=== PATIENT | female | born 1965 | race Caucasian/White ===

== ENCOUNTER → 2016-07-12 | Outpatient (CLI) | payer BC ==
[2016-07-12 16:44] LABS: Basophils % (A) 1 %; CH 29.7; Eosinophils % (A) 1 %; HCT 42.5 % (34.0-46.0); HDW 2.52; HGB 13.7 gm/dL (11.4-16.0); Luc % (Auto) 2; Lymphocytes # (A) 1.6 k/uL (1.0-4.8); Lymphocytes % (A) 37 %; MCH 29.2 pg (25.0-35.0); MCHC 32.2 g/dL (31.0-37.0); MCV 90.6 fL (80.0-100.0); Mean Platelet Volume 6.6; Monocytes # (A) 0.2 k/uL (0-1.0); Monocytes % (A) 5 %; Neutrophils # (A) 2.4 k/uL (1.3-7.7); Neutrophils % (A) 56 %; RBC 4.69 m/uL (3.80-5.40); RDW 12.1 % (11.5-15.5); WBC 4.3 k/uL (3.8-10.6)
[2016-07-12 16:53] LABS: ALT 30 U/L (9-52); AST 16 U/L (14-36); Anion Gap 11 mmol/L; Blood Urea Nitrogen 10 mg/dL (7-17); Calcium 9.3 mg/dL (8.4-10.2); Carbon Dioxide 23 mmol/L (22-30); Chloride 110 mmol/L (98-107); Glucose 92 mg/dL (74-99); Non-African American GFR(MDRD) >60 (>60 ml/min/1.73 sqM); Potassium 4.1 mmol/L (3.5-5.1); Sodium 144 mmol/L (137-145)
== END | disposition home or self-care (01) ==
LOC: LABWHC1 16:10
PROVIDERS: ATTEND Psychiatry & Neurology Neurology
DX: Z51.81 Encounter for therapeutic drug level monitoring (principal); Z79.899 Other long term (current) drug therapy
CPT/HCPCS: 36415; 80048; 84450; 84460; 85025

== ENCOUNTER 2016-11-12 23:21 | Emergency (ER) | payer BC ==
--- NOTE | 2016-11-12 23:50 | ED ---
General Adult HPI - General Chief complaint: Fall Stated complaint: syncope Time Seen by Provider: 11/12/16 23:25 Source: patient, RN notes reviewed Mode of arrival: ambulatory Limitations: no limitations - History of Present Illness Initial comments: This is a 51-year-old female who states she had worked a 16-18 hour day and she was extremely tired. Patient states she went to the bathroom and felt the toilet and then fell off the toilet and hit her head on the left side of her head. Patient states he was some bleeding at that time but she never found the site of bleeding. Patient states she did not lose consciousness she had no neck pain. Patient denies any current headache. Patient states her scalp is very tender. This occurred 2 days ago. Patient denies any chest pain palpitations difficulty breathing or shortness of breath. Patient denies any back pain. Patient does have a little lateral left shoulder pain. Patient states she does have full range of motion of her shoulder. Patient also complains of some left lateral hip pain again full range of motion of the left hip is intact. Patient denies any other symptoms or injuries. - Related Data Home Medications Medication Instructions Recorded Confirmed Ascorbic Acid [Vitamin C] 1,000 mg PO DAILY 11/12/16 11/12/16 Aspirin 81 mg PO DAILY 11/12/16 11/12/16 Ergocalciferol [Vitamin D2] 50,000 unit PO QMONTH 11/12/16 11/12/16 HYDROcodone/APAP 10-325MG [Success 1 tab PO QID PRN 11/12/16 11/12/16 10-325] Multivit-Min/FA/Lycopen/Lutein 1 tab PO DAILY 11/12/16 11/12/16 [Centrum Silver Tablet] Nitroglycerin Sl Tabs [Nitrostat] 0.4 mg SUBLINGUAL Q5M PRN 11/12/16 11/12/16 Pravastatin Sodium [Pravachol] 40 mg PO HS 11/12/16 11/12/16 Topiramate [Topamax] 50 mg PO DAILY@1400 11/12/16 11/12/16 Topiramate [Topamax] 100 mg PO BID@0800,2000 11/12/16 11/12/16 Unknown Inhaler 1 dose INHALATION DIRECTED 11/12/16 11/12/16 Allergies Allergy/AdvReac Type Severity Reaction Status Date / Time latex Allergy Unknown Verified 11/12/16 23:40 Penicillins Allergy Unknown Verified 11/12/16 23:40 Review of Systems ROS Statement: Those systems with pertinent positive or pertinent negative responses have been documented in the HPI. ROS Other: All systems not noted in ROS Statement are negative. Past Medical History Past Medical History: Seizure Disorder History of Any Multi-Drug Resistant Organisms: None Reported Past Surgical History: Appendectomy, Heart Catheterization With Stent Past Psychological History: No Psychological Hx Reported Smoking Status: Current every day smoker Past Alcohol Use History: Occasional General Exam - General Exam Comments Initial Comments: GENERAL: Patient is well-developed and well-nourished. Patient is nontoxic and well- hydrated and is in mild distress. Patient's scalp is tender in the left temporal region. No abrasion or laceration could be found on the patient's scalp. ENT: Neck is soft and supple. No significant lymphadenopathy is noted. Oropharynx is clear. Moist mucous membranes. Neck has full range of motion without eliciting any pain. EYES: The sclera were anicteric and conjunctiva were pink and moist. Extraocular movements were intact and pupils were equal round and reactive to light. Eyelids were unremarkable. PULMONARY: Unlabored respirations. Good breath sounds bilaterally. No audible rales rhonchi or wheezing was noted. CARDIOVASCULAR: There is a regular rate and rhythm without any murmurs gallops or rubs. ABDOMEN: Soft and nontender with normal bowel sounds. No palpable organomegaly was noted. There is no palpable pulsatile mass. SKIN: Skin is clear with no lesions or rashes and otherwise unremarkable. NEUROLOGIC: Patient is alert and oriented x3. Cranial nerves II through XII are grossly intact. Motor and sensory are also intact. Normal speech, volume and content. Symmetrical smile. MUSCULOSKELETAL: Normal extremities with adequate strength and full range of motion. Patient has some tenderness to the lateral left hip as well as lateral shoulder. She has full range of motion of both her hip and shoulder. LYMPHATICS: No significant lymphadenopathy is noted PSYCHIATRIC: Normal psychiatric evaluation. Normal interpersonal interactions appears functionally intact in deals appropriately with others. No signs of depression. Limitations: no limitations Course Vital Signs 11/12/16 11/13/16 23:25 01:04 Temperature 98.2 F Pulse Rate 84 66 Respiratory 16 18 Rate Blood Pressure 137/77 122/68 O2 Sat by Pulse 100 97 Oximetry Medical Decision Making - Medical Decision Making Pelvis x-ray shows no acute abnormalities. Shoulder x-ray shows no acute abnormalities. CT of the head shows no acute abnormalities. Disposition Clinical Impression: Multiple contusions, Head injury Disposition: HOME SELF-CARE Condition: Good Instructions: Head Injury (ED) Referrals: Igor Contreras DO [Primary Care Provider] - 1-2 days Time of Disposition: 01:14
--- NOTE | 2016-11-13 00:33 | CT ---
EXAM: CT Head Without Intravenous Contrast CLINICAL HISTORY: Reason: syncope with fall, left sided head pain TECHNIQUE: Axial computed tomography images of the head/brain without intravenous contrast. CTDI is 57.40 mGy and DLP is 978.20 mGy-cm. This CT exam was performed using one or more of the following dose reduction techniques: automated exposure control, adjustment of the mA and/or kV according to patient size, and/or use of iterative reconstruction technique. COMPARISON: CT head on 01/29/2016 FINDINGS: Brain: No acute infarct or hemorrhage. No extra-axial fluid collection. No mass effect or midline shift. Ventricles and sulci: Normal. No ventriculomegaly or intraventricular hemorrhage. Skull: Normal. No bony lesion or fracture. Subcutaneous tissues: Normal. Sinuses: Normal. No air-fluid levels or mucosal thickening. Mastoid air cells: Normal. Orbits: Grossly unremarkable. IMPRESSION: No acute intracranial abnormality.
[2016-11-13 01:04] VITALS: BP 122/68; PULSE 66; RESP 18
--- NOTE | 2016-11-13 01:05 | XR ---
EXAM: XR Left Shoulder Complete, 2 or More Views CLINICAL HISTORY: Reason: left shoulder pain from fall from toilet TECHNIQUE: Two or more views of the left shoulder. COMPARISON: None FINDINGS: Bones/joints: No acute fracture or dislocation identified. Degenerative changes of the left acromioclavicular joint. Soft tissues: Normal. IMPRESSION: No acute abnormality identified.
--- NOTE | 2016-11-13 01:08 | XR ---
EXAM: XR Pelvis, 1 or 2 Views CLINICAL HISTORY: Reason: left hip pain from fall from toilet TECHNIQUE: Frontal view of the pelvis. COMPARISON: Pelvis radiograph on 01/29/2016 FINDINGS: Bones/joints: No acute fracture or dislocation identified. Stable mild degenerative changes of the hips. Soft tissues: Surgical clips again noted projecting over the superior right pelvis. IMPRESSION: No acute abnormality identified.
[2016-11-13] MEDS ORDERED: DOXYCYCLINE 50 MG CAP PO STA (01:19)
[2016-11-13 02:06] VITALS: TEMP 98.6
== END 2016-11-13 01:45 | disposition home or self-care (01) ==
LOC: EC 23:21
DX: S70.02XA Contusion of left hip, initial encounter (principal); S40.012A Contusion of left shoulder, initial encounter; S09.90XA Unspecified injury of head, initial encounter; G40.909 Epilepsy, unspecified, not intractable, without status epilepticus; F17.200 Nicotine dependence, unspecified, uncomplicated; Z79.82 Long term (current) use of aspirin; Z79.899 Other long term (current) drug therapy; Z91.040 Latex allergy status; Z88.0 Allergy status to penicillin; W18.11XA Fall from or off toilet without subsequent striking against object, initial encounter; Y92.89 Other specified places as the place of occurrence of the external cause
CPT/HCPCS: 70450; 72170; 99284

== ENCOUNTER → 2018-01-14 | Outpatient (CLI) | payer BC ==
--- NOTE | 2018-01-16 10:24 | MM ---
Reason for exam: screening (asymptomatic). Last mammogram was performed 1 year and 8 months ago. History: Benign excisional biopsy of the left breast, 2002. Physical Findings: A clinical breast exam by your physician is recommended on an annual basis and results should be correlated with mammographic findings. MG 3D Screening Mammo W/Cad Bilateral CC and MLO view(s) were taken. Prior study comparison: May 21, 2016, bilateral MG 3d screening mammo w/cad. November 25, 2012, CAD bilateral diagnostic mammogram. The breast tissue is heterogeneously dense. This may lower the sensitivity of mammography. There is chronic nodularity in the left breast. Interval weight loss. No significant changes when compared with prior studies. ASSESSMENT: Negative, BI-RAD 1 RECOMMENDATION: Routine screening mammogram of both breasts in 1 year.
== END | disposition home or self-care (01) ==
LOC: RADMAMWWP 16:40
PROVIDERS: ATTEND Internal Medicine
DX: Z12.31 Encounter for screening mammogram for malignant neoplasm of breast (principal)
CPT/HCPCS: 77063; 77067

== ENCOUNTER → 2019-02-02 | Outpatient (CLI) | payer BC ==
--- NOTE | 2019-02-03 13:49 | MM ---
Reason for exam: screening (asymptomatic). Last mammogram was performed 1 year and 1 month ago. History: Benign excisional biopsy of the left breast, 2002. Physical Findings: A clinical breast exam by your physician is recommended on an annual basis and results should be correlated with mammographic findings. MG 3D Screening Mammo W/Cad Bilateral CC and MLO view(s) were taken. Prior study comparison: January 14, 2018, bilateral MG 3d screening mammo w/cad. May 21, 2016, bilateral MG 3d screening mammo w/cad. The breast tissue is heterogeneously dense. This may lower the sensitivity of mammography. No suspicious abnormality. Post surgical change on the left. No significant changes when compared with prior studies. ASSESSMENT: Benign, BI-RAD 2 RECOMMENDATION: Routine screening mammogram of both breasts in 1 year.
== END | disposition home or self-care (01) ==
LOC: RADMAMWWP 09:11
PROVIDERS: ATTEND Internal Medicine
DX: Z12.31 Encounter for screening mammogram for malignant neoplasm of breast (principal); Z80.3 Family history of malignant neoplasm of breast; Z90.12 Acquired absence of left breast and nipple
CPT/HCPCS: 77063; 77067

== ENCOUNTER → 2019-04-29 | Outpatient (CLI) | payer BC ==
[2019-04-29 17:40] LABS: Chol/HDL Ratio 2.01
== END | disposition home or self-care (01) ==
LOC: LABWHC1 08:08
PROVIDERS: ATTEND Internal Medicine Interventional Cardiology
DX: E78.5 Hyperlipidemia, unspecified (principal)
CPT/HCPCS: 36415; 80061

== ENCOUNTER → 2020-06-28 | Outpatient (CLI) | payer BC ==
--- NOTE | 2020-06-30 10:05 | MM ---
Reason for exam: screening (asymptomatic). Last mammogram was performed 1 year and 5 months ago. History: Benign excisional biopsy of the left breast, 2002. Physical Findings: A clinical breast exam by your physician is recommended on an annual basis and results should be correlated with mammographic findings. MG 3D Screening Mammo W/Cad Bilateral CC and MLO view(s) were taken. Prior study comparison: February 02, 2019, bilateral MG 3d screening mammo w/cad. January 14, 2018, bilateral MG 3d screening mammo w/cad. The breast tissue is heterogeneously dense. This may lower the sensitivity of mammography. No significant changes when compared with prior studies. ASSESSMENT: Benign, BI-RAD 2 RECOMMENDATION: Routine screening mammogram of both breasts in 1 year.
== END | disposition home or self-care (01) ==
LOC: RADMAMWWP 09:14
PROVIDERS: ATTEND Internal Medicine
DX: Z12.31 Encounter for screening mammogram for malignant neoplasm of breast (principal)
CPT/HCPCS: 77063; 77067

== ENCOUNTER → 2020-10-28 | Outpatient (CLI) | payer BC ==
--- NOTE | 2020-10-28 10:01 | XR ---
EXAMINATION TYPE: XR chest 2V DATE OF EXAM: 10/28/2020 COMPARISON: Chest x-ray January 29, 2016 HISTORY: Generalized weakness and shortness of breath TECHNIQUE: Frontal and lateral views of the chest are obtained. FINDINGS: There is no focal air space opacity, pleural effusion, or pneumothorax seen. The cardiac silhouette size remains stable and within normal limits. Underlying scoliotic curvature near the leve l of the thoracolumbar junction. IMPRESSION: No acute cardiopulmonary process. No significant change from prior.
--- NOTE | 2020-10-28 10:55 | XR ---
EXAMINATION TYPE: XR hand complete LT DATE OF EXAM: 10/28/2020 COMPARISON: NONE HISTORY: Left first digit pain with decreased range of motion. No injury.. TENDERNESS ON LT THUMB ME TACARPAL BONE. TECHNIQUE: AP, oblique, and lateral views of the left hand were obtained. FINDINGS: No acute fracture. No dislocation. There is moderate degenerative spurring of the first dig it interphalangeal joint. There are also mild to moderate degenerative changes at the proximal interp halangeal joints, and mildly at the second and third digits distal interphalangeal joints. The metaca rpophalangeal joints of the second through fifth digits are normal in space seen and without osteophy tosis, however there is periarticular osteopenia at the metacarpophalangeal joints. There is also mil d periarticular osteopenia at the fourth and fifth digits at the PIP joints. There is very minimal de generative change at the first carpometacarpal joint. There is periarticular osteopenia noted primari ly at the second through fifth digit There is no no evidence of osseous erosion or periosteal reactio n. There is no significant cystic changes. No significant soft tissue swelling. IMPRESSION: 1. No acute fracture or dislocation. 2. There is moderate degenerative spurring at the first digit interphalangeal joint, likely the sour ce of patient's pain. 3. 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 Recommend clinical correlation.
[2020-10-28 16:49] LABS: INR 0.87 (0.90-1.11); Prothrombin Time 9.6 sec (9.9-11.9)
[2020-10-28 17:04] LABS: Basophils # (A) 0.05 X 10*3/uL (0.00-0.10); Eosinophils # (A) 0.35 X 10*3/uL (0.04-0.35); Eosinophils % (A) 7.1 %; HGB 13.6 g/dL (12.0-15.0); Lymphocytes # (A) 1.36 X 10*3/uL (0.90-5.00); Lymphocytes % (A) 27.5 %; MCH 29.1 pg (27.0-32.0); MCHC 31.6 g/dL (32.0-37.0); MCV 92.1 fL (80.0-97.0); Mean Platelet Volume 10.1 fL (9.5-12.2); Monocytes # (A) 0.51 X 10*3/uL (0.20-1.00); Monocytes % (A) 10.3 %; Neutrophils # (A) 2.66 X 10*3/uL (1.80-7.70); Neutrophils % (A) 53.9 %; Platelet Count 226 X 10*3/uL (140-440); RBC 4.67 X 10*6/uL (4.10-5.20); RDW 12.3 % (11.5-14.5); WBC 4.94 X 10*3/uL (4.50-10.00)
[2020-10-28 17:46] LABS: Erythrocyte Sedimentation Rate 6 mm/Hr (0-30)
[2020-10-28 22:11] LABS: ALT 22 U/L (8-44); AST 22 U/L (13-35); African American GFR (CKD) 111.5 (60.0-200.0); Alkaline Phosphatase 117 U/L (41-126); BUN/Creat Ratio 18.57 Ratio (12.00-20.00); C Reactive Protein <0.4 mg/dL (0.0-0.8); Calcium 8.8 mg/dL (8.7-10.3); Carbon Dioxide 22.1 mmol/L (21.6-31.8); Chloride 112 mmol/L (96-109); Globulin 1.8 g/dL (1.6-3.3); Glucose 160 mg/dL (70-110); Non-African American GFR(CKD) 96.2 (60.0-200.0); Phosphorus 3.7 mg/dL (2.4-5.1); Potassium 4.1 mmol/L (3.5-5.5); Sodium 145 mmol/L (135-145); Total Bilirubin 0.3 mg/dL (0.3-1.2); Total Protein 6.3 g/dL (6.2-8.2); Uric Acid 2.9 mg/dL (2.9-7.7)
== END | disposition home or self-care (01) ==
LOC: LABWHC1 08:59
PROVIDERS: ATTEND Internal Medicine
DX: M19.042 Primary osteoarthritis, left hand (principal); M06.9 Rheumatoid arthritis, unspecified; R53.1 Weakness; R06.02 Shortness of breath; R53.83 Other fatigue
CPT/HCPCS: 36415; 71046; 80053; 82533; 83735; 84100; 84550; 85025; 85610; 85652; 86140; 86618

== ENCOUNTER → 2021-07-13 | Outpatient (CLI) | payer BC ==
--- NOTE | 2021-07-14 11:57 | MM ---
Reason for exam: screening (asymptomatic). Last mammogram was performed 1 year ago. History: Patient is postmenopausal. Family history of breast cancer in maternal grandmother. Benign excisional biopsy of the left breast, 2002. Physical Findings: A clinical breast exam by your physician is recommended on an annual basis and results should be correlated with mammographic findings. MG 3D Screening Mammo W/Cad Bilateral CC and MLO view(s) were taken. Prior study comparison: June 28, 2020, bilateral MG 3d screening mammo w/cad. February 02, 2019, bilateral MG 3d screening mammo w/cad. The breast tissue is heterogeneously dense. This may lower the sensitivity of mammography. There is no discrete abnormality. ASSESSMENT: Negative, BI-RAD 1 RECOMMENDATION: Routine screening mammogram of both breasts in 1 year.
== END | disposition home or self-care (01) ==
LOC: RADMAMWWP 13:16
PROVIDERS: ATTEND Internal Medicine
DX: Z12.31 Encounter for screening mammogram for malignant neoplasm of breast (principal); Z78.0 Asymptomatic menopausal state; Z80.3 Family history of malignant neoplasm of breast
CPT/HCPCS: 77063; 77067

== ENCOUNTER → 2022-06-13 | Outpatient (CLI) | payer BC ==
--- NOTE | 2022-06-13 11:13 | US ---
EXAMINATION TYPE: US thyroid st tissue head/neck DATE OF EXAM: 06/13/2022 COMPARISON: NONE CLINICAL HISTORY: M79.9 SOFT TISSUE DISORDER, UNSPECIFIED. Patient has a history of extreme head trau ma. Patient states both sides of her neck feel very hard and are painful. Bilateral lateral neck scanned at patient's area of concern. Upper midline neck was also scanned infe rior to the chin. No abnormalities seen within the right lateral neck or upper midline neck. Hypoechoic area with hyperechoic center seen within the left neck at the submandibular area: 1.9 x 1. 1 x 0.8 cm. IMPRESSION: 1. There may be a lymph node within the left neck submandibular region. Follow-up can be performed as clinically indicated.
== END | disposition home or self-care (01) ==
LOC: RADUSWWP 08:18
PROVIDERS: ATTEND Family Medicine
DX: M79.9 Soft tissue disorder, unspecified (principal)
CPT/HCPCS: 76536

== ENCOUNTER → 2022-07-13 | Outpatient (CLI) | payer BC ==
--- NOTE | 2022-07-13 15:17 | CT ---
EXAMINATION TYPE: CT soft tissue neck w con DATE OF EXAM: 07/13/2022 COMPARISON: None HISTORY: 56-year-old female M79.9, Unspecified soft tissue disorder of neck. Pt states she has bilate ral stiffness and pain, limited neck movement. TECHNIQUE: Contiguous axial scanning of the soft tissues of the neck performed with IV Contrast, deborah ent injected with 70 mL of Isovue 300. Coronal/sagittal reconstructions performed. CT DLP: 310 mGycm Automated exposure control for dose reduction was used. FINDINGS: Visualized intracranial structures, orbits and globes, paranasal sinuses, mastoid air cells appear cl ear. Leftward nasal septal deviation. Nasopharynx and oropharynx are clear. Mild bilateral palatine tonsillar hypertrophy. Epiglottis and prevertebral soft tissues are satisfactory. Glottic and subglottic structures as well as the tracheal column and visualized upper lungs appear cl ear. The thyroid and submandibular glands appear satisfactory. Atrophic bilateral parotid glands. Upper cervical lymph nodes measuring up to 6 mm short axis. No cervical lymphadenopathy by CT size cr iteria. Mild atherosclerotic calcifications at the left carotid bifurcation. Bones: There is [id number] degenerative disc disease C5-C7 levels with disc space narrowing and small disc osteophyte complex formation. This results in straightening and slight reversal cervical lordosis. Uncovertebral joint arthropathy lower cervical spine. Changes result in mild bilateral neur oforaminal narrowing at C5-C6 and C6/C7. IMPRESSION: 1. MILD TO MODERATE SPONDYLOTIC CHANGE C5-C7 LEVELS. MILD BILATERAL NEURAL FORAMINAL NARROWING AT BOT H OF THESE LEVELS. 2. MILD BILATERAL PALATINE TONSILLAR HYPERTROPHY. SLIGHTLY ATROPHIC BILATERAL PAROTID GLANDS. LEFTWAR D NASAL SEPTAL DEVIATION. 4. OTHERWISE, NO SPECIFIC ABNORMALITY SEEN.
== END | disposition home or self-care (01) ==
LOC: RADCTMAIN 10:05
PROVIDERS: ATTEND Family Medicine
DX: J35.1 Hypertrophy of tonsils (principal); J34.2 Deviated nasal septum; M79.9 Soft tissue disorder, unspecified; I65.23 Occlusion and stenosis of bilateral carotid arteries; K11.0 Atrophy of salivary gland; M47.812 Spondylosis without myelopathy or radiculopathy, cervical region; M99.71 Connective tissue and disc stenosis of intervertebral foramina of cervical region
CPT/HCPCS: 70491; Q9967

== ENCOUNTER → 2022-07-18 | Outpatient (CLI) | payer BC ==
--- NOTE | 2022-07-19 08:26 | MM ---
Reason for Exam: Screening (asymptomatic). Last screening mammogram was performed 12 month(s) ago. Patient History: Menarche at age 7. First Full-Term at age 16. Left ovary removed at age 36. Right ovary removed at age 36. Hysterectomy at age 36. Postmenopausal. 2002, Benign Excisional Biopsy on the left side. Maternal grandmother had breast cancer. Risk Values: Carleen 5 year model risk: 1.2%. NCI Lifetime model risk: 7.2%. Prior Study Comparison: 02/02/2019 Bilateral Screening Mammogram, [facility]. 06/28/2020 Bilateral Screening Mammogram, [facility]. 07/13/2021 Bilateral Screening Mammogram, [facility]. Tissue Density: The breast tissue is heterogeneously dense. This may lower the sensitivity of mammography. Findings: Analyzed By CAD. There is no suspicious group of microcalcifications or new suspicious mass in either breast. Overall Assessment: Benign, BI-RAD 2 Management: Screening Mammogram of both breasts in 1 year. A clinical breast exam by your physician is recommended on an annual basis and results should be correlated with mammographic findings. Electronically signed and approved by: Harlye Garcia M.D. Radiologis
== END | disposition home or self-care (01) ==
LOC: RADMAMWWP 11:40
PROVIDERS: ATTEND Family Medicine
DX: Z12.31 Encounter for screening mammogram for malignant neoplasm of breast (principal); Z78.0 Asymptomatic menopausal state; Z80.3 Family history of malignant neoplasm of breast
CPT/HCPCS: 77063; 77067

== ENCOUNTER → 2023-02-20 | Outpatient (CLI) | payer BC ==
[2023-02-20 13:39] LABS: ALT 15 U/L (8-44); AST 19 U/L (13-35); Albumin 4.5 d/dL (3.8-4.9); Albumin/Globulin Ratio 2.25 Ratio (1.60-3.17); Alkaline Phosphatase 81 U/L (41-126); BUN/Creat Ratio 13.11 Ratio (12.00-20.00); Blood Urea Nitrogen 11.8 mg/dL (9.0-27.0); Calcium 9.3 mg/dL (8.7-10.3); Carbon Dioxide 23.3 mmol/L (21.6-31.8); Chloride 109 mmol/L (96-109); Chol/HDL Ratio 3.04 Ratio; Glucose 106 mg/dL (70-110); LDL Cholesterol,Calculated 122.7 mg/dL (0.0-131.0); Potassium 4.4 mmol/L (3.5-5.5); Sodium 144 mmol/L (135-145); Total Bilirubin 0.3 mg/dL (0.3-1.2); Total Protein 6.5 d/dL (6.2-8.2); VLDL Calculation 11.48 mg/dL (5.00-40.00)
== END | disposition home or self-care (01) ==
LOC: LABWHC1 08:12
PROVIDERS: ATTEND Internal Medicine Cardiovascular Disease
DX: I25.10 Atherosclerotic heart disease of native coronary artery without angina pectoris (principal)
CPT/HCPCS: 36415; 80053; 80061

== ENCOUNTER → 2023-07-24 | Outpatient (CLI) | payer BC ==
--- NOTE | 2023-07-25 09:01 | MM ---
Reason for Exam: Screening (asymptomatic). Last screening mammogram was performed 12 month(s) ago. Patient History: Menarche at age 7. First Full-Term at age 16. Left ovary removed at age 36. Right ovary removed at age 36. Hysterectomy at age 36. Postmenopausal. 2002, Benign Excisional Biopsy on the left side. Maternal grandmother had breast cancer. Risk Values: Carleen 5 year model risk: 1.3%. NCI Lifetime model risk: 7.0%. Prior Study Comparison: 06/28/2020 Bilateral Screening Mammogram, [facility]. 07/13/2021 Bilateral Screening Mammogram, [facility]. 07/18/2022 Bilateral MG 3D screening mammo w/cad, [facility]. Tissue Density: The breast tissue is heterogeneously dense. This may lower the sensitivity of mammography. Findings: Analyzed By CAD. There is no suspicious group of microcalcifications or new suspicious mass. Overall Assessment: Negative, BI-RAD 1 Management: Screening Mammogram of both breasts in [address] [facility] will attempt to contact patient to return for supplemental views and ultrasound if indicated. Patient should continue monthly self-breast exams. A clinical breast exam by your physician is recommended on an annual basis. This exam should not preclude additional follow-up of suspicious palpable abnormalities. Note on Carleen scores and lifetime risk: 1. A Carleen score greater than 3% is considered moderate risk. If this is the case, consider specialist referral to assess eligibility for a risk reducing agent. 2. If overall lifetime risk for the development of breast cancer is 20% or higher, the patient may qualify for future screening with alternating mammogram and breast MRI. Electronically signed and approved by: Johnnie Garay DO
== END | disposition home or self-care (01) ==
LOC: RADMAMWWP 09:59
PROVIDERS: ATTEND Family Medicine
DX: Z12.31 Encounter for screening mammogram for malignant neoplasm of breast (principal); Z80.3 Family history of malignant neoplasm of breast; Z78.0 Asymptomatic menopausal state
CPT/HCPCS: 77063; 77067

== ENCOUNTER 2024-08-31 17:35 | Emergency (ER) | payer BC ==
[2024-08-31 17:44] VITALS: BP 144/91; PULSE 69; RESP 16; TEMP 97.4
--- NOTE | 2024-08-31 17:57 | ED ---
ENT HPI - General Source: patient Mode of arrival: ambulatory Limitations: no limitations - History of Present Illness MD complaint: ear pain <Alhaji Delgado - Last Filed: 08/31/24 21:26> <Johnnie Horta - Last Filed: 08/31/24 21:34> - General Chief complaint: ENT Stated complaint: Left side facial pain - History of Present Illness Initial comments: Patient is a 58-year-old female with history of seizures and heart cath with stent present to the ED with left ear pain that has been going on for the past 3 weeks. Patient reports that the pain initially started about 3 weeks ago she was taking antibiotics for about a week however she did not notice any improvement. Patient went to urgent care today and was sent to ED by urgent care as they had concerns for possible left mastoiditis. Patient currently endorses left facial pain, left ear pain, pain on the left mastoid process and a tension headache bilaterally and has been progressively getting worse. Patient also reports tinnitus and throbbing sensation in her left ear. Also reports some pain that radiates down toward left side of her neck. Patient denies cough, runny nose, sore throat, fever, nausea, vomiting, belly pain, dysuria, d iarrhea, constipation, lower extremity swelling. (Alhaji Delgado) - Related Data Home Medications Medication Instructions Recorded Confirmed Ascorbic Acid [Vitamin C] 1,000 mg PO DAILY 11/12/16 11/12/16 Aspirin 81 mg PO DAILY 11/12/16 11/12/16 Ergocalciferol [Vitamin D2] 50,000 unit PO QMONTH 11/12/16 11/12/16 HYDROcodone/APAP 10-325MG [[place] 1 tab PO QID PRN 11/12/16 11/12/16 10-325] Multivit-Min/FA/Lycopen/Lutein 1 tab PO DAILY 11/12/16 11/12/16 [Centrum Silver Tablet] Nitroglycerin Sl Tabs [Nitrostat] 0.4 mg SUBLINGUAL Q5M PRN 11/12/16 11/12/16 Pravastatin Sodium [Pravachol] 40 mg PO HS 11/12/16 11/12/16 Topiramate [Topamax] 50 mg PO DAILY@1400 11/12/16 11/12/16 Topiramate [Topamax] 100 mg PO BID@0800,2000 /22/17 05/22/17 Unknown Inhaler 1 dose INHALATION DIRECTED 11/12/16 11/12/16 Previous Rx's Medication Instructions Recorded Azithromycin [Zithromax Z Pack] 250 mg PO DAILY #6 tab 08/31/24 Fluticasone Nasal [place] [Flonase 2 spray EA NOSTRIL DAILY #16 gm 08/31/24 Nasal [place]] Loratadine [Claritin] 10 mg PO DAILY 7 Days #7 tab 08/31/24 Allergies Allergy/AdvReac Type Severity Reaction Status Date / Time latex Allergy Unknown Verified 08/31/24 17:44 Penicillins Allergy Unknown Verified 08/31/24 17:44 Review of Systems ROS Other: All systems not noted in ROS Statement are negative. Constitutional: Reports: chills. Denies: fever ENT: Reports: ear pain. Denies: throat pain, congestion Respiratory: Denies: cough, dyspnea Cardiovascular: Denies: chest pain, palpitations Gastrointestinal: Denies: nausea, vomiting Genitourinary: Denies: urgency, dysuria Neurological: Reports: headache <Alhaji Delgado - Last Filed: 08/31/24 21:26> ROS Other: All systems not noted in ROS Statement are negative. <Johnnie Horta - Last Filed: 08/31/24 21:34> ROS Statement: Those systems with pertinent positive or pertinent negative responses have been documented in the HPI. Past Medical History Past Medical History: Seizure Disorder History of Any Multi-Drug Resistant Organisms: None Reported Past Surgical History: Appendectomy, Heart Catheterization With Stent Past Psychological History: No Psychological Hx Reported Smoking Status: Current every day smoker Past Alcohol Use History: None Reported Past Drug Use History: Marijuana <Alhaji Delgado - Last Filed: 08/31/24 21:26> General Exam Limitations: no limitations <Alhaji Delgado - Last Filed: 08/31/24 21:26> - General Exam Comments Initial Comments: GENERAL: This is a 58-year-old in no apparent distress at the time of examination. Pleasant and cooperative. HEENT: Head is atraumatic, normocephalic. No visible discoloration, swelling, erythema on the left mastoid process. There is some fluid buildup behind left tympanic membrane. Normal right tympanic membrane. RESPIRATORY: Clear to auscultation bilaterally. No wheezing, Rales, rhonchi, stridor, crackles. CARDIOVASCULAR: Regular rate and rhythm. No systolic or diastolic murmur auscultated. GASTROINTESTINAL: No distention noted. Abdomen soft and round. Normal active bowel sounds auscultated x 4 quadrants. No pain or tenderness noted upon palpation. INTEGUMENTARY: No cyanosis. No jaundice. No rashes noted. No cellulitis noted. EXTREMITIES: 2+ peripheral pulses. No evidence of peripheral edema. No calf tenderness noted. NEUROLOGIC: Cranial nerves II-XII intact. Intact bilateral upper and lower extremity muscle strength. PSYCHIATRIC: Awake, alert, and oriented X 3. Appropriate affect. Intact judgement and insight. (Alhaji Delgado) Course Vital Signs 08/31/24 17:36 Temperature 97.4 F L Pulse Rate 69 Respiratory 16 Rate Blood Pressure 144/91 O2 Sat by Pulse 100 Oximetry Medical Decision Making - Lab Data Result diagrams: 08/31/24 20:34 08/31/24 20:34 <Alhaji Delgado - Last Filed: 08/31/24 21:26> - Lab Data Result diagrams: 08/31/24 20:34 08/31/24 20:34 <Johnnie Horta - Last Filed: 08/31/24 21:34> - Medical Decision Making Was pt. sent in by a medical professional or institution (JOVAN Patino, ROUTE DELIVERY SUPERVISOR, urgent care, hospital, or penitentiary...) When possible be specific @ -Sent by urgent care Did you speak to anyone other than the patient for history (EMS, parent, family, police, friend...)? What history was obtained from this source @ -Spoke with patient's daughter Did you review nursing and triage notes (agree or disagree)? Why? @ -Reviewed and agree with nursing triage notes Were old charts reviewed (outside hosp., previous admission, EMS record, old EKG, old radiological studies, urgent care reports/EKG's, penitentiary records)? Report findings @ -No old charts reviewed Differential Diagnosis? @ -Otitis media, otitis externa, mastoiditis, sinusitis, tension headache EKG interpreted by me (3pts min.). @ -No EKG X-rays interpreted by me (1pt min.). @ -No x-rays ordered CT interpreted by me (1pt min.). @ -Pending results of CT of mastoid U/S interpreted by me (1pt. min.). @ -No ultrasound What testing was considered but not performed or refused? (CT, X-rays, U/S, labs)? Why? @ -None What meds were considered but not given or refused? Why? @ -None Did you discuss the management of the patient with other professionals (professionals i.e. Dr., PA, ROUTE DELIVERY SUPERVISOR, lab, RT, psych nurse, social worker assistant, simulation developer, teacher, chief wellness officer, leather case finisher)? Give summary @ -Discussed with attending physician Was smoking cessation discussed for >3mins.? @ -None Was critical care preformed (if so, how long)? @ -No Were there social determinants of health that impacted care today? How? (Homelessness, low income, unemployed, alcoholism, drug addiction, transportation, low edu. Level, literacy, decrease access to med. care, [facility], rehab)? @ -No Was there de-escalation of care discussed even if they declined (Discuss DNR or withdrawal of care, Hospice)? DNR status @ -No What co-morbidities impacted this encounter? (DM, HTN, Smoking, COPD, CAD, Cancer, CVA, ARF, Chemo, Hep., AIDS, mental health diagnosis, sleep apnea, morbid obesity)? @ -History of seizure, heart catheter with catheterization Was patient admitted / discharged? Hospital course, mention meds given and route, prescriptions, significant lab abnormalities, going to OR and other pertinent info. @ -Patient presented to the ED with left ear pain this been going on for the past [address] of the mastoid was ordered which did not show mastoiditis. CBC, CMP, and lactic acid came back negative. Will discharge patient back home with azithromycin, Flonase nasal spray and Claritin. Undiagnosed new problem with uncertain prognosis? @ -No Drug Therapy requiring intensive monitoring for toxicity (Heparin, Nitro, Insulin, Cardizem)? @ -No Were any procedures done? @ -No Diagnosis/symptom? @ -Otitis media Acute, or Chronic, or Acute on Chronic? @ -Acute Uncomplicated (without systemic symptoms) or Complicated (systemic symptoms)? @ -Uncomplicated Side effects of treatment? @ -No side effects Exacerbation, Progression, or Severe Exacerbation? @ -No exacerbation Poses a threat to life or bodily function? How? (Chest pain, [place], [place], pneumonia, PE, COPD, DKA, ARF, appy, cholecystitis, CVA, Diverticulitis, Homicidal, Suicidal, threat to staff... and all critical care pts) @ -No (Sandy,Alhaji) I personally saw the patient and performed the critical portion of the service. I discussed the patient care with the resident. I directed management, care planning and final disposition of the patient. This includes, but not limited to, review of all lab work, radiological studies, EKG's, consultations, vital signs, and nursing notes. EKG interpreted by me (3pts min.) @ [as above] X-Rays interpreted by me (1 pt min.) @ [none] CT interpreted by me ( 1pt min.) @CT of the bilateral mastoid air cells is negative for signs of infection, no acute process U/S interpreted by me (1 pt min.) @ [none] Critical care time of [0] minutes excluding separately billable procedures was spent in conjunction with critical care activities provided by the Resident and Attending simultaneously. I was present during [no procedures] for all critical portions of the procedure and as immediately available to furnish service during the entire procedure. (Johnnie Horta) - Lab Data Lab Results 08/31/24 08/31/24 08/31/24 Range/Units 20:34 20:34 20:34 WBC 4.3 (3.8-10.6) k/uL RBC 4.79 (3.80-5.40) m/uL Hgb 13.3 (11.4-16.0) gm/dL Hct 42.7 (34.0-46.0) % MCV 89.1 (80.0-100.0) fL MCH 27.8 (25.0-35.0) pg MCHC 31.3 (31.0-37.0) g/dL RDW 12.5 (11.5-15.5) % Plt Count 245 (150-450) k/uL MPV 7.0 Neutrophils % 57 % Lymphocytes % 31 % Monocytes % 8 % Eosinophils % 2 % Basophils % 1 % Neutrophils # 2.5 (1.3-7.7) k/uL Lymphocytes # 1.3 (1.0-4.8) k/uL Monocytes # 0.4 (0-1.0) k/uL Eosinophils # 0.1 (0-0.7) k/uL Basophils # 0.0 (0-0.2) k/uL Sodium 137 (137-145) mmol/L Potassium 4.5 (3.5-5.1) mmol/L Chloride 110 H (98-107) mmol/L Carbon Dioxide 18 L (22-30) mmol/L Anion Gap 9 mmol/L BUN 10 (7-17) mg/dL Creatinine 0.67 (0.52-1.04) mg/dL Est GFR (CKD-EPI)AfAm >90 (>60 ml/min/1.73 sqM) Est GFR (CKD-EPI)NonAf >90 (>60 ml/min/1.73 sqM) Glucose 87 (74-99) mg/dL Plasma Lactic Acid Kho[place] 0.6 L (0.7-2.0) mmol/L Calcium 9.0 (8.4-10.2) mg/dL Total Bilirubin 0.6 (0.2-1.3) mg/dL AST 31 (14-36) U/L ALT 24 (4-34) U/L Alkaline Phosphatase 75 (38-126) U/L Total Protein 6.2 L (6.3-8.2) g/dL Albumin 3.9 (3.5-5.0) g/dL Disposition Is patient prescribed a controlled substance at d/c from ED?: No Time of Disposition: 21:30 <Alhaji Delgado - Last Filed: 08/31/24 21:26> <Johnnie Horta - Last Filed: 08/31/24 21:34> Clinical Impression: Otitis media Narrative: Patient will be discharged home azithromycin, Claritin, Flonase nasal spray. CBC, CMP, lactic acid were unremarkable. CT of mastoid did not show mastoiditis. (Alhaji Delgado) Disposition: HOME SELF-CARE Condition: Stable Instructions (If sedation given, give patient instructions): Ear Infection (ED) Prescriptions: Loratadine [Claritin] 10 mg PO DAILY 7 Days #7 tab Fluticasone Nasal [place] [Flonase Nasal [place]] 2 spray EA NOSTRIL DAILY #16 gm Azithromycin [Zithromax Z Pack] 250 mg PO DAILY #6 tab Referrals: Alejandro Yang DO [Primary Care Provider] - 1-2 days
[2024-08-31] MEDS: ACETAMINOPHEN TAB 500 MG TAB PO STA (19:26)
--- NOTE | 2024-08-31 20:46 | CT ---
EXAMINATION TYPE: CT mastoid wo con CT DLP: 278.6 mGycm, Automated exposure control for dose reduction was used. DATE OF EXAM: 08/31/2024 7:12 PM INDICATION: Patient age:Female; 58 years old; Reason for study: Bone pain behind left ear, left ear fluid build up; PHH. COMPARISON: None.. TECHNIQUE: Multiple thin axial images were obtained through the temporal bones and internal auditory canals. Additional coronal reformatted images were obtained. No IV contrast was utilized. CT Contrast: mL of , none. FINDINGS: Right Temporal Bone: External Ear: The external auditory canal is unremarkable, The tympanic membrane is grossly unremarka ble. Middle Ear: The ossicles demonstrate a normal appearance. The scutum is intact. There is no evidenc e of osseous erosion. Inner Ear: Cochlea, vestibule and semi circular canals are unremarkable. The vestibular aqueduct is not enlarged. Mastoid Air Cells: The mastoid air cells are clear. Internal Auditory Canal: The internal auditory canal is unremarkable. Left Temporal Bone: External Ear: The external auditory canal is unremarkable, The tympanic membrane is grossly unremarka ble. Middle Ear: The ossicles demonstrate a normal appearance. The scutum is intact. There is no evidenc e of osseous erosion. Inner Ear: Cochlea, vestibule and semi circular canals are unremarkable. The vestibular aqueduct is not enlarged. Mastoid Air Cells: The mastoid air cells are clear. Internal Auditory Canal: The internal auditory canal is unremarkable. Other: Mild paranasal sinus mucosal thickening. IMPRESSION: Left mastoid air cells are clear. There are no erosive or destructive changes involving the left temp oral bone. No fluid is seen within the middle ear or external auditory canal. Correlate with clinical evaluation. [facility], , 08/31/2024 8:44 PM
[2024-08-31 21:01] LABS: Basophils % (A) 1 %; Eosinophils # (A) 0.1 k/uL (0-0.7); Eosinophils % (A) 2 %; HCT 42.7 % (34.0-46.0); HGB 13.3 gm/dL (11.4-16.0); Lymphocytes # (A) 1.3 k/uL (1.0-4.8); Lymphocytes % (A) 31 %; MCH 27.8 pg (25.0-35.0); MCHC 31.3 g/dL (31.0-37.0); MCV 89.1 fL (80.0-100.0); Monocytes # (A) 0.4 k/uL (0-1.0); Monocytes % (A) 8 %; Neutrophils # (A) 2.5 k/uL (1.3-7.7); Neutrophils % (A) 57 %; Platelet Count 245 k/uL (150-450); RBC 4.79 m/uL (3.80-5.40); RDW 12.5 % (11.5-15.5); WBC 4.3 k/uL (3.8-10.6)
[2024-08-31 21:19] LABS: ALT 24 U/L (4-34); AST 31 U/L (14-36); African American GFR (CKD) >90 (>60 ml/min/1.73 sqM); Albumin 3.9 g/dL (3.5-5.0); Alkaline Phosphatase 75 U/L (38-126); Anion Gap 9 mmol/L; Blood Urea Nitrogen 10 mg/dL (7-17); Carbon Dioxide 18 mmol/L (22-30); Chloride 110 mmol/L (98-107); Glucose 87 mg/dL (74-99); Non-African American GFR(CKD) >90 (>60 ml/min/1.73 sqM); Potassium 4.5 mmol/L (3.5-5.1); Sodium 137 mmol/L (137-145); Total Bilirubin 0.6 mg/dL (0.2-1.3); Total Protein 6.2 g/dL (6.3-8.2)
== END 2024-08-31 21:42 | disposition home or self-care (01) ==
LOC: EC 17:35
DX: H66.92 Otitis media, unspecified, left ear (principal); G40.909 Epilepsy, unspecified, not intractable, without status epilepticus; F17.200 Nicotine dependence, unspecified, uncomplicated
CPT/HCPCS: 36415; 70486; 80053; 83605; 85025; 87040; 99284

== ENCOUNTER → 2024-10-16 | Outpatient (CLI) | payer BC ==
--- NOTE | 2024-10-19 09:53 | MM ---
Reason for Exam: Screening (asymptomatic). Last mammogram was performed 1 year(s) and 3 month(s) ago. Patient History: Menarche at age 7. First Full-Term at age 16. Left ovary removed at age 36. Right ovary removed at age 36. Hysterectomy at age 36. Postmenopausal. 2002, Benign Excisional Biopsy on the left side. Maternal grandmother had breast cancer. Risk Values: Carleen 5 year model risk: 1.4%. NCI Lifetime model risk: 6.7%. Prior Study Comparison: 07/13/2021 Bilateral Screening Mammogram, [facility]. 07/18/2022 Bilateral MG 3D screening mammo w/cad, [facility]. 07/24/2023 Bilateral MG 3D screening mammo w/cad, [facility]. Tissue Density: The breasts are heterogeneously dense, which may obscure small masses. Findings: Analyzed By CAD. There is no suspicious group of microcalcifications or new suspicious mass in either breast. Overall Assessment: Negative, BI-RAD 1 Management: Screening Mammogram of both breasts in 1 year. . Patient should continue monthly self-breast exams. A clinical breast exam by your physician is recommended on an annual basis. This exam should not preclude additional follow-up of suspicious palpable abnormalities. Note on Carleen scores and lifetime risk: 1. A Carleen score greater than 3% is considered moderate risk. If this is the case, consider specialist referral to assess eligibility for a risk reducing agent. 2. If overall lifetime risk for the development of breast cancer is 20% or higher, the patient may qualify for future screening with alternating mammogram and breast MRI. [facility], , 10/16/2024 2:29 PM. Electronically signed and approved by: Harley Garcia M.D. Radiolog[facility]
== END | disposition home or self-care (01) ==
LOC: RADMAMWWP 14:14
PROVIDERS: ATTEND Family Medicine
DX: Z12.31 Encounter for screening mammogram for malignant neoplasm of breast (principal); R92.333 Mammographic heterogeneous density, bilateral breasts; Z78.0 Asymptomatic menopausal state; Z80.3 Family history of malignant neoplasm of breast
CPT/HCPCS: 77063; 77067